=== PATIENT | female | born 1990 | race African-American/Black ===

== ENCOUNTER 2019-04-27 18:09 | Inpatient (IN) | payer OTHER | END 2019-04-30 19:35 | disposition home or self-care (01) | LOC: JDEL 18:09 → JLDR 04-28 12:04 → J3W 04-28 15:31 | DX: O60.00 Preterm labor without delivery, unspecified trimester (principal) ==

== ENCOUNTER 2021-01-15 11:03 | Inpatient (IN) | payer OTHER ==
[2021-01-15] MEDS ORDERED: AMPICILLIN SODIUM 2 GM VIAL ONE (14:38)
[2021-01-15] MEDS ORDERED: SODIUM CHLORIDE 100 ML IVPB ONE (14:38)
[2021-01-15] MEDS ORDERED: OXYTOCIN 20 UNITS in 0.9% NS 20 UNIT/1,000 ML INFUS.BAG IV ONE ×2 (15:20→20:03)
[2021-01-15] MEDS ORDERED: NALOXONE HCL 0.4 MG/ML VIAL IVPUSH PRN (15:25)
[2021-01-15] MEDS ORDERED: BUPIVACAINE HCL/PF 0.25% (2.5MG/ML) 10 ML VIAL ONE (15:27)
[2021-01-15] MEDS ORDERED: FENTANYL/BUPIVACAINE/NS/PF - PCEA - 50 ML DISP.SYRIN EP SCH (15:30)
[2021-01-15] MEDS ORDERED: ELECTROLYTE-148 SOLN 1,000 ML IV SCH (15:30)
[2021-01-15 15:42] LABS: BASO % 0.2 % (0-2.0); EOS % 0.6 % (0-4.5); HEMATOCRIT 31.9 % (32.4-45.2); LYMPH % 23.2 % (8-40); MCH 26.8 pg (25.7-33.7); MCHC 34.5 g/dl (32.0-36.0); MEAN CELL VOLUME 77.7 fl (80-96); MEAN PLT VOLUME 7.8 fl (7.5-11.1); MONO % 8.1 % (3.8-10.2); NEUT % 67.9 % (42.8-82.8); PLATELET COUNT 336 K/MM3 (134-434); RBC 4.11 M/mm3 (3.60-5.2); RDW 14.5 % (11.6-15.6); WHITE BLOOD COUNT 11.2 K/mm3 (4.0-10.0)
[2021-01-15 15:47] LABS: CALCIUM 8.6 mg/dL (8.5-10.1)
[2021-01-15 15:48] LABS: BLOOD UREA NITROGEN 4.8 mg/dL (7-18); INR 0.92 (0.83-1.09); PROTHROMBIN TIME (PATIENT) 11.3 SEC (9.7-13.0)
[2021-01-15 15:51] LABS: ACTIVATED PTT 24.9 SECONDS (25.2-36.5); CREATININE 0.5 mg/dL (0.55-1.3)
[2021-01-15] MEDS ORDERED: oxyCODONE HCL 5 MG TABLET PO ONE (16:00)
[2021-01-15] MEDS ORDERED: ACETAMINOPHEN 325 MG TABLET (FP) PO PRN (16:03)
[2021-01-15] MEDS ORDERED: BENZOCAINE 20% 57 GM BOTTLE TP PRN (16:03)
[2021-01-15] MEDS ORDERED: IBUPROFEN 600 MG TABLET (FP) PO PRN (16:03)
[2021-01-15] MEDS ORDERED: BENZOCAINE 28 GM HEMORRHOIDAL OINTMENT TP PRN (16:03)
[2021-01-15] MEDS ORDERED: BISACODYL 10 MG SUPP.RECT RC PRN (16:03)
[2021-01-15] MEDS ORDERED: METHYLERGONOVINE MALEATE 0.2 MG/1 ML AMP IM PRN (16:03)
[2021-01-15] MEDS ORDERED: WITCH HAZEL 50% (TUCKS) 40 PAD/JAR PAD TP PRN (16:03)
[2021-01-15] MEDS ORDERED: oxyCODONE HCL 5 MG TABLET ONE (16:05)
[2021-01-15] MEDS ORDERED: AMPICILLIN - 2 GM in SODIUM CHLORIDE 100 ML IVPB ONE (16:06)
[2021-01-15 16:13] LABS: SYPHILIS W/ RPR CONF NON-REACTIVE (NONREACTIVE)
[2021-01-15] MEDS ORDERED: OXYTOCIN 20 UNITS in 0.9% NS 20 UNIT/1,000 ML INFUS.BAG IV SCH (16:15)
[2021-01-15 16:42] LABS: HIV INTERPRETATION NEGATIVE (NEGATIVE)
[2021-01-15 16:43] VITALS: BMI 34.9
[2021-01-15 17:41] LABS: CORD BASE EXCESS -4.3 mmol/L (0-2); CORD PCO2 45.6 mmHg (30-78); CORD pH 7.301 (7.14-7.44)
[2021-01-15] MEDS: FERROUS SO4 325 MG TABLET (FP) PO SCH (23:39)
[2021-01-16 06:34] LABS: BASO % 0.5 % (0-2.0); EOS % 0.4 % (0-4.5); HEMOGLOBIN 10.8 GM/dL (10.7-15.3); LYMPH % 15.6 % (8-40); MCH 26.7 pg (25.7-33.7); MCHC 34.8 g/dl (32.0-36.0); MEAN CELL VOLUME 76.7 fl (80-96); MEAN PLT VOLUME 7.3 fl (7.5-11.1); MONO % 6.6 % (3.8-10.2); NEUT % 76.9 % (42.8-82.8); PLATELET COUNT 319 K/MM3 (134-434); RBC 4.05 M/mm3 (3.60-5.2); RDW 14.7 % (11.6-15.6); WHITE BLOOD COUNT 15.4 K/mm3 (4.0-10.0)
[2021-01-16] MEDS: PRENATAL VITAMINS W/ FOLIC ACID TABLET (FP) PO SCH (09:18)
[2021-01-16] MEDS: FERROUS SO4 325 MG TABLET (FP) PO SCH ×2 (09:18→17:52)
[2021-01-16] MEDS ORDERED: SENNOSIDES/DOCUSATE COMBO (SENNA PLUS) TABLET (UD) PO PRN (22:00)
[2021-01-17] MEDS: FERROUS SO4 325 MG TABLET (FP) PO SCH (08:55)
[2021-01-17] MEDS: PRENATAL VITAMINS W/ FOLIC ACID TABLET (FP) PO SCH (09:46)
[2021-01-17 09:49] VITALS: BP 111/68; PULSE 101; TEMP 98.3
== END 2021-01-17 14:15 | disposition home or self-care (01) | DRG 560 ==
LOC: JLDR 11:03 → J3W 20:06
PROVIDERS: ADMIT Obstetrics & Gynecology; ATTEND Obstetrics & Gynecology
PROC: 10E0XZZ Delivery of Products of Conception, External Approach (ICD-10-PCS; principal; 2021-01-15)
DX: O99.824 Streptococcus B carrier state complicating childbirth (principal); O69.81X0 Labor and delivery complicated by cord around neck, without compression, not applicable or unspecified; O75.89 Other specified complications of labor and delivery; F31.9 Bipolar disorder, unspecified; Z3A.38 38 weeks gestation of pregnancy; Z37.0 Single live birth
CPT/HCPCS: 36415; 36600; 59409; 80048; 82803; 85025; 85610; 85730; 86780; 86850; 86900; 86901; 87389; C9803; U0003; U0005

== ENCOUNTER 2023-06-23 10:30 | Inpatient (IN) | payer OTHER ==
[2023-06-23] MEDS ORDERED: OXYTOCIN 20 UNITS in 0.9% NS 20 UNIT/1,000 ML INFUS.BAG IV ONE (10:50)
[2023-06-23] MEDS ORDERED: AMPICILLIN SODIUM 2 GM VIAL ONE (10:53)
[2023-06-23] MEDS ORDERED: SODIUM CHLORIDE 100 ML IVPB ONE (10:53)
[2023-06-23] MEDS: OXYTOCIN 20 UNITS in 0.9% NS 20 UNIT/1,000 ML INFUS.BAG IV SCH ×2 (11:16→12:15)
[2023-06-23 12:02] LABS: BASO % 0.2 % (0-2.0); EOS % 0.5 % (0-4.5); HEMATOCRIT 31.8 % (32.4-45.2); HEMOGLOBIN 11.3 GM/dL (10.7-15.3); LYMPH % 23.2 % (8-40); MCH 26.2 pg (25.7-33.7); MCHC 35.4 g/dl (32.0-36.0); MEAN CELL VOLUME 74.1 fl (80-96); MONO % 7.9 % (3.8-10.2); NEUT % 68.2 % (42.8-82.8); PLATELET COUNT 322 10^3/uL (134-434); RDW 15.1 % (11.6-15.6); WHITE BLOOD COUNT 10.5 K/mm3 (4.0-10.0)
[2023-06-23 12:06] LABS: INR 0.98 (0.83-1.09); PROTHROMBIN TIME (PATIENT) 11.4 SEC (9.7-13.0)
[2023-06-23 12:06] LABS: CORD BASE EXCESS -4.3 mmol/L (0-2); CORD PCO2 39.4 mmHg (30-78); CORD pH 7.345 (7.14-7.44)
[2023-06-23] MEDS ORDERED: BENZOCAINE 28 GM HEMORRHOIDAL OINTMENT TP PRN (12:06)
[2023-06-23] MEDS ORDERED: BISACODYL 10 MG SUPP.RECT RC PRN (12:06)
[2023-06-23] MEDS ORDERED: METHYLERGONOVINE MALEATE 0.2 MG/1 ML AMP IM PRN (12:06)
[2023-06-23] MEDS ORDERED: ACETAMINOPHEN 325 MG TABLET (FP) PO PRN (12:06)
[2023-06-23] MEDS ORDERED: BENZOCAINE 20% 57 GM BOTTLE TP PRN (12:06)
[2023-06-23] MEDS ORDERED: WITCH HAZEL 50% (TUCKS) 40 PAD/JAR PAD TP PRN (12:06)
[2023-06-23 12:07] VITALS: BMI 36.6
[2023-06-23 12:09] LABS: ACTIVATED PTT 24.9 SECONDS (25.2-36.5)
[2023-06-23] MEDS ORDERED: AMPICILLIN - 2 GM in SODIUM CHLORIDE 100 ML IVPB ONE (12:09)
[2023-06-23 12:10] LABS: CORD BASE EXCESS -4.5 mmol/L (0-2); CORD HCO3 22.9 mmHg (20-29); CORD PCO2 51.6 mmHg (30-78); CORD pH 7.265 (7.14-7.44)
[2023-06-23] MEDS ORDERED: ELECTROLYTE-148 SOLN 1,000 ML IV SCH (12:15)
[2023-06-23 12:25] LABS: POTASSIUM 3.4 mmol/L (3.5-5.1)
[2023-06-23 12:26] LABS: CALCIUM 8.1 mg/dL (8.5-10.1)
[2023-06-23 12:27] LABS: BLOOD UREA NITROGEN 5.4 mg/dL (7-18)
[2023-06-23 12:30] LABS: CREATININE 0.7 mg/dL (0.55-1.3)
[2023-06-23 14:00] VITALS: RESP 18
[2023-06-24] MEDS: IBUPROFEN 600 MG TABLET (FP) PO PRN ×2 (01:22→21:51)
[2023-06-24 09:40] LABS: BASO % 0.3 % (0-2.0); EOS % 0.6 % (0-4.5); HEMATOCRIT 31.7 % (32.4-45.2); HEMOGLOBIN 11.4 GM/dL (10.7-15.3); LYMPH % 24.6 % (8-40); MCH 26.4 pg (25.7-33.7); MEAN CELL VOLUME 73.4 fl (80-96); MEAN PLT VOLUME 7.3 fl (7.5-11.1); MONO % 6.3 % (3.8-10.2); NEUT % 68.2 % (42.8-82.8); PLATELET COUNT 330 10^3/uL (134-434); RBC 4.31 M/mm3 (3.60-5.2); RDW 15.4 % (11.6-15.6)
[2023-06-24] MEDS: valACYclovir HCL 500 MG TABLET (FP) PO SCH ×2 (18:11→21:48)
[2023-06-24] MEDS ORDERED: SENNOSIDES/DOCUSATE COMBO (SENNA PLUS) TABLET (UD) PO PRN (22:00)
[2023-06-24 22:44] VITALS: PULSE 90; TEMP 98.5
[2023-06-25] MEDS: valACYclovir HCL 500 MG TABLET (FP) PO SCH ×2 (06:27→13:14)
[2023-06-25 11:18] VITALS: BP 128/80
[2023-06-26 18:08] LABS: VARICELLA-ZOSTER IGM < 0.91 index (0.00-0.90)
== END 2023-06-25 14:30 | disposition home or self-care (01) | DRG 560 ==
LOC: JDEL 10:30 → JLDR 10:40 → J3W 13:20
PROVIDERS: ADMIT Obstetrics & Gynecology; ATTEND Obstetrics & Gynecology
PROC: 10E0XZZ Delivery of Products of Conception, External Approach (ICD-10-PCS; principal; 2023-06-23)
DX: O80 Encounter for full-term uncomplicated delivery (principal); O69.81X0 Labor and delivery complicated by cord around neck, without compression, not applicable or unspecified; O99.824 Streptococcus B carrier state complicating childbirth; Z3A.39 39 weeks gestation of pregnancy; Z37.0 Single live birth; Z86.59 Personal history of other mental and behavioral disorders
CPT/HCPCS: 36415; 36600; 80048; 82803; 85025; 85610; 85730; 86780; 86787; 86850; 86900; 86901